=== PATIENT | male | born 1995 | race Caucasian/White ===

== ENCOUNTER 2017-02-11 17:06 | Inpatient (IN) | payer OTHER ==
--- NOTE | 2017-02-11 17:59 | EDPHY ---
H & P Time Seen by Provider: 02/11/17 17:24 HPI/ROS: HPI Bipolar. 22-year-old male by private vehicle with his mother. This patient has a history of bipolar disorder. He has been on Zoloft and Zyprexa as well as lithium. He stopped taking Zoloft and Zyprexa weeks ago. He is currently managed by local psychiatrist Dr. Prado. Mother reports that over the last couple of weeks he has become progressively more manic. He is still taking lithium 600 mg twice daily. He is not suicidal. He admits to alcohol and chewing tobacco today. ROS: Constitutional: No fever, no chills. No weakness. Eyes: No discharge. No changes in vision. ENT: No sore throat. No nasal congestion or rhinorrhea. Respiratory: No cough. No shortness of breath. Cardiac: No chest pain, no palpitations. Gastrointestinal: No abdominal pain, no vomiting, no diarrhea. Genitourinary: No hematuria. No dysuria or increased frequency with urination. Musculoskeletal: No back pain. No neck pain. No myalgias or arthralgias. Skin: No rashes. Neurological: No headache. No focal weakness or altered sensation. Past medical history: ADD, bipolar. Social history: Chews tobacco, drinks alcohol socially. Here with his mother. Physical Exam: General Appearance: Alert, no distress. This patient is responding to questions appropriately and in full sentences. This patient appears well- hydrated and well-nourished. Eyes: Pupils equal and round no pallor or injection. No lid edema, erythema or injection. Respiratory: There are no retractions, lungs are clear to auscultation with good air movement bilaterally. Cardiovascular: Regular rate and rhythm. No murmur. Gastrointestinal: Abdomen is soft and nontender, no masses, bowel sounds normal. No focal tenderness at McBurney's point. No Roberson sign. Neurological: Motor sensory function is grossly intact. Cranial nerves are normal. Gait is normal. Skin: Warm and dry, no rashes. Musculoskeletal: Neck is supple and nontender. Extremities are symmetrical. All joints range without pain or impingement. Psychiatric: No agitation. No depression. Database: EKG: Imaging: Procedures: Emergency department course: IV placed. Appropriate blood work obtained. He will be given Zyprexa 10 mg as needed for agitation. Behavioral Health notified. He is not currently on detainer. He is cooperative. 9:45 p.m., patient seen and evaluated by [facility]. He has been accepted for admission to [address] [place] [address]. I have filled out the appropriate transfer paperwork. His remaining emergency department course under my care has been uneventful. He was transferred in stable and improved condition to [address] [place] [address]. Differential Diagnosis: The differential diagnosis on this patient includes but is not limited to bipolar with acute naif. Suicidal ideation, severe depression, acute psychosis unlikely. This represents a partial list of diagnoses considered. These considerations are based on history, physical exam, past history, reassessment and diagnostic testing. Smoking Status: Current some day smoker Constitutional: Initial Vital Signs Temperature (C) 37.1 C 02/11/17 17:10 Heart Rate 107 H 02/11/17 17:10 Respiratory Rate 18 02/11/17 17:10 Blood Pressure 171/102 H 02/11/17 17:10 O2 Sat (%) 95 02/11/17 17:10 O2 Delivery Mode Room Air Allergies/Adverse Reactions: nitroglycerin [From Nitro-Bid] Allergy (Verified 02/11/17 17:09) Home Medications: Medication Instructions Recorded [facility] Carbonate ER [Eskalith Cr 900 mg PO HS #60 tab 07/21/15 450 mg (*)] OLANZapine [Zyprexa] 20 mg PO HS #30 tablet 07/21/15 Medical Decision Making - Data Points Laboratory Results: Laboratory Results 02/11/17 17:45 02/11/17 17:45 02/11/17 02/11/17 02/11/17 18:01 17:45 17:45 WBC 9.94 10^3/uL H 10^3/uL (3.80-9.50) RBC 5.08 10^6/uL 10^6/uL (4.40-6.38) Hgb 15.1 g/dL g/dL (13.7-17.5) Hct 46.3 % % (40.0-51.0) MCV 91.1 fL fL (81.5-99.8) MCH 29.7 pg pg (27.9-34.1) MCHC 32.6 g/dL g/dL (32.4-36.7) RDW 13.4 % % (11.5-15.2) Plt Count 231 10^3/uL 10^3/uL (150-400) MPV 11.2 fL fL (8.7-11.7) Neut % (Auto) 74.4 % H % (39.3-74.2) Lymph % (Auto) 17.3 % % (15.0-45.0) Haines % (Auto) 6.0 % % (4.5-13.0) Eos % (Auto) 1.3 % % (0.6-7.6) Baso % (Auto) 0.6 % % (0.3-1.7) Nucleat RBC Rel Count 0.0 % % (0.0-0.2) Absolute Neuts (auto) 7.39 10^3/uL H 10^3/uL (1.70-6.50) Absolute Lymphs (auto) 1.72 10^3/uL 10^3/uL (1.00-3.00) Absolute Monos (auto) 0.60 10^3/uL 10^3/uL (0.30-0.80) Absolute Eos (auto) 0.13 10^3/uL 10^3/uL (0.03-0.40) Absolute Basos (auto) 0.06 10^3/uL 10^3/uL (0.02-0.10) Absolute Nucleated RBC 0.00 10^3/uL 10^3/uL (0-0.01) Immature Gran % 0.4 % % (0.0-1.1) Immature Gran # 0.04 10^3/uL 10^3/uL (0.00-0.10) Sodium 142 mEq/L mEq/L (134-144) Potassium 3.9 mEq/L mEq/L (3.5-5.2) Chloride 103 mEq/L mEq/L (97-110) Carbon Dioxide 23 mEq/l mEq/l (22-31) Anion Gap 16 mEq/L mEq/L (8-16) BUN 4 mg/dL L mg/dL (7-23) Creatinine 0.9 mg/dL mg/dL (0.7-1.3) Estimated GFR > 60 Glucose 92 mg/dL mg/dL (70-100) Calcium 10.3 mg/dL mg/dL (8.5-10.4) Urine Opiates Screen NEGATIVE (NEGATIVE) Urine Barbiturates NEGATIVE (NEGATIVE) Ur Phencyclidine Scrn NEGATIVE (NEGATIVE) Ur Amphetamine Screen NEGATIVE (NEGATIVE) U Benzodiazepines Scrn NEGATIVE (NEGATIVE) [facility] 0.4 mEq/L L mEq/L (0.6-1.2) Urine Cocaine Screen NEGATIVE (NEGATIVE) U Marijuana (THC) Screen NEGATIVE (NEGATIVE) Ethyl Alcohol 26 mg/dL H mg/dL (0-10) Departure - Departure Disposition: [facility] IP Clinical Impression: Bipolar 1 disorder, manic, moderate Referrals: NONE *PRIMARY CARE P,. [Primary Care Provider] - As per Instructions
[2017-02-11 18:01] LABS: % IMMATURE GRANULYOCYTES 0.4 % (0.0-1.1); ABSOLUTE IMMATURE GRANULOCYTES 0.04 10^3/uL (0.00-0.10); ADD DIFF? NO; ADD MORPH? NO; ADD SCAN? NO; ATYPICAL LYMPHOCYTE FLAG 30 (0-99); FRAGMENT RBC FLAG 0 (0-99); HEMATOCRIT 46.3 % (40.0-51.0); HEMOGLOBIN 15.1 g/dL (13.7-17.5); LEFT SHIFT FLG 0 (0-99); LIPEMIA HEMOLYSIS FLAG 80 (0-99); MEAN CELL HEMOGLOBIN 29.7 pg (27.9-34.1); MEAN CELL HEMOGLOBIN CONCENTR. 32.6 g/dL (32.4-36.7); MEAN CELL VOLUME 91.1 fL (81.5-99.8); MEAN PLATELET VOLUME 11.2 fL (8.7-11.7); PLATELET CLUMPS FLAG 0 (0-99); PLATELET COUNT 231 10^3/uL (150-400); RED BLOOD CELL COUNT 5.08 10^6/uL (4.40-6.38); RED CELL DISTRIBUTION WIDTH 13.4 % (11.5-15.2)
[2017-02-11 18:17] LABS: ANION GAP 16 mEq/L (8-16); CALCIUM 10.3 mg/dL (8.5-10.4); CARBON DIOXIDE 23 mEq/l (22-31); CHLORIDE 103 mEq/L (97-110); CREATININE 0.9 mg/dL (0.7-1.3); ETHANOL SERUM 26 mg/dL (0-10); GLOMERULAR FILTRATION RATE > 60; GLUCOSE 92 mg/dL (70-100); LITHIUM 0.4 mEq/L (0.6-1.2); POTASSIUM 3.9 mEq/L (3.5-5.2); SODIUM 142 mEq/L (134-144)
[2017-02-11] MEDS ORDERED: MAGNESIUM HYDROXIDE 30 ML UDCUP PO PRN (21:00)
[2017-02-11] MEDS ORDERED: MAG HYDROX/AL HYDROX/SIMETH 30 ML UDCUP PO PRN (21:00)
[2017-02-11] MEDS ORDERED: NICOTINE POLACRILEX 2 MG GUM B PRN (21:00)
[2017-02-11] MEDS ORDERED: ACETAMINOPHEN 325 MG TAB PO PRN (21:00)
[2017-02-11] MEDS ORDERED: MELATONIN 3 MG TAB PO PRN (21:00)
[2017-02-11] MEDS ORDERED: LORazepam 1 MG TAB PO PRN (21:00)
[2017-02-11] MEDS ORDERED: OLANZapine DISINTEGR 5 MG TAB PO PRN (21:00)
[2017-02-11] MEDS: OLANZapine DISINTEGR 10 MG TAB PO SCH (23:27)
[2017-02-11] MEDS: LITHIUM CARBONATE 300 MG CAP PO SCH (23:27)
[2017-02-12] MEDS: LITHIUM CARBONATE 300 MG CAP PO SCH ×2 (08:53→19:02)
--- NOTE | 2017-02-12 17:07 | BAPA ---
[f rep st] ADMISSION PSYCHIATRIC ASSESSMENT DATE OF SERVICE: 02/12/2017 REASON FOR ADMISSION: The patient is a 22-year-old male with a history bipolar disorder, w james is well known to me from previous admissions both here and at [facility]. He was l ast with us in July 2015 and apparently has been generally stable since then. I interviewed him lizbethrenny cote in his room, and he is quite sleepy and was unable to state if he had been in the hospital since t hat last hospitalization here or not. He apparently was brought to the hospital by his mother due to concerns for escalating naif. Apparently, he had been experiencing decreasing sleep and had been u p riding his bike or walking the streets all night in the cold without a jacket. He had been going t o the all-night gym at 2 in the morning. He states that he was hearing voices, but says it was all p art of some form of electrical spectrum. His mother states that he was also drinking alcohol on a re gular basis recently, even though he had quit for the last year and a half. The patient can give lit tle additional information, stating that he feels like he has been doing fine, and that he is only he re "to make my mom happy." He states he has been inconsistent with his medications, but is unsure ex actly how much he has been taking or not taking. PAST PSYCHIATRIC HISTORY: Significant for 5 previous psychiatric hospitalizations. The last was tawana arently here in July of 2015. He sees Dr. Shawn Prado as an outpatient. ALLERGIES: No known medical allergies, though listed to nitroglycerin for some reason. CURRENT MEDICATIONS: Zyprexa; patient states he is taking 10 mg as needed for sleep, lithium carbona te 600 mg b.i.d., and Zoloft dose unknown. PAST MEDICAL HISTORY: Ulcerative colitis and eczema. When I looked in the patient's record, there a re pathology reports for his tonsils dated January of 2017. The patient is unable to give me informa tion about this. He may have had a tonsillectomy at that time. SOCIAL HISTORY: The patient lives with his mother. He previously lived with his father until his fa ther last year from pancreatic cancer. 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 The patient denies any current legal problems. The patient is a high school graduate. SUBSTANCE ABUSE HISTORY: The patient states he is drinking alcohol occasionally, though reports jem ng been abstinent for over a year until recently. He denies any other drug use currently. FAMILY HISTORY: Noncontributory. ADMISSION LABORATORY: CBC shows a white count slightly up at 9.94, with neutrophil percentage up at 74.4%. Serum chemistries are normal, with the exception of BUN low at 4. Urine drug screen is negat danisha for all substances. Alcohol was 26 and lithium was 0.4. MENTAL STATUS EXAMINATION: Reveals a marginally groomed, healthy-appearing male. He is sl eeping when I enter the room, and he is able to sit up and talk to me, but appears quite sedated. He makes intermittent eye contact and demonstrates a blunted, though stable affect. His mood is descri bed as "fine." His thought process is linear for the purposes of our conversation, though he does of ten state that he does not know the answer to a question or cannot remember. His thought content rev eals no evidence of auditory hallucinations or delusions as mentioned in the [facility] report at this time. The patient is alert and oriented to person, place, time, and situation. His sensorium is clear. He denies any thoughts of suicide, homicide or violence. His insight and judgment appear to be fair. IMPRESSION: 1. Bipolar 1 disorder, most recent episode manic, severe with psychosis. 2. Possible alcohol use disorder, severity unknown. 3. Chronic illness, recurrent illness. PLAN: The patient is a 22-year-old male, well known to me from previous psychiatric admiss ions. It was 5 years ago when he was first diagnosed with bipolar naif. He has a long and difficul t history of severe decompensations in the psychotic naif in the context of medication noncompliance and substance use. This typically takes the form of acceleration of grandiose delusions and him chey ving home abruptly and living on the streets. He is apparently now living with his mother. It sound s like it was a stable environment until recently when he may have become noncompliant with his medic natanael. He is agreeable to restarting his medications at this time, and we will restart the lithium an d Zyprexa at previous doses. ESTIMATED LENGTH OF STAY: 5-7 days. /[id number]/MODL
--- NOTE | 2017-02-12 17:47 | BCON ---
[f rep st] BEHAVIORAL HEALTH CONSULTATION INTERNAL MEDICINE CONSULTATION DATE OF CONSULTATION: 02/12/2017 REFERRING PHYSICIAN: Lamin Antonio MD REASON FOR REFERRAL: Medical clearance for inpatient behavioral health stay. HISTORY OF PRESENT ILLNESS: This patient came to the [facility] Emergency Department, brought in by his mother. He has a history of bipolar disorder and mother had noted that over the last few weeks, he had become progressively more manic. He had continued to take his lithium; however, he had stopped taking olanzapine and sertraline. He was evaluated by the mental health team and admitted for further psychiatric care. Currently, he is without any acute complaints. PAST MEDICAL HISTORY: 1. Bipolar disorder. 2. Irritable bowel syndrome. PAST SURGICAL HISTORY: He had a tonsillectomy approximately 2 months ago. MEDICATIONS: Prior to admission: 1. Eluxadoline 100 mg p.o. twice daily. 2. Olanzapine 2.5 mg p.o. at bedtime p.r.n. 3. [place] 600 mg p.o. twice daily. SOCIAL HISTORY: He lives with his mother. He has worked as a ren. He is a smoker. FAMILY HISTORY: Noncontributory. REVIEW OF SYSTEMS: He reports that his irritable bowel syndrome, diarrhea symptoms are in remission and he has not been taking the eluxadoline recently. He says the medication is at home with his mother, and it is very expensive, so he did not bring it. He has a good appetite. He denies cough or dyspnea. He is not in pain. He denies nausea, vomiting, constipation, or diarrhea. Otherwise, a 10-point review of systems is negative. PHYSICAL EXAM: VITAL SIGNS: Blood pressure is 118/80, heart rate is 94, respiratory rate is 14, oxygen saturation is 95% on room air. Temperature is 36.4 degrees centigrade. His weight is 81.6 kg for a body mass index of 25.1. When he first got to the emergency department, his blood pressure was 171/102 and his heart rate was 107. GENERAL: This is a well-nourished, well-developed man, appears chronologic age. Cooperative and in no acute distress. HEENT: Extraocular movements are intact. Pupils are equal, round, reactive to light. Mucous membranes are moist. Dentition is in good condition. There are no oropharyngeal mucosal lesions, and no posterior oropharyngeal mucus. NECK: Supple. HEART: There is a regular rate and rhythm with no murmurs, rubs, or gallops. LUNGS: Clear to auscultation bilaterally. ABDOMEN: Benign. EXTREMITIES: There is no cyanosis, clubbing, or edema. NEUROLOGIC: He is alert and oriented x3. Cranial nerves 2-12 are grossly intact. There is no focal weakness. Sensation is intact to light touch. LABORATORY STUDIES: Drawn in the emergency department, CBC showed a mildly elevated white blood cell count at 9.94 with no left shift. Serum chemistry revealed overall normal renal function and electrolytes. His BUN was low at 4. Toxicology screen in the serum showed a subtherapeutic lithium level at 0.4, and his ethyl alcohol level was elevated at 26 mg/dL. Toxicology screen in the urine was negative for any substances of abuse. ASSESSMENT/RECOMMENDATIONS: 1. Mental health issues, pending further evaluation and management per Psychiatry and the mental health team. 2. Irritable bowel syndrome. Observe for development of diarrhea. If this happens, would be reasonable to request that the eluxadoline be brought in so that he can resume taking medication which has been effective for him. 3. Elevated blood pressure and leukocytosis. These are likely due to hyperandrogenic state, having to do with circumstances of his admission. There is no indication to repeat the CBC. I see no medical contraindications to this patient's continued stay on the inpatient behavioral health unit or to any psychiatric medications or procedures. Thank you very much for including me in the care of this patient. Please do not hesitate to contact me or the Hospitalist service should there be need for further medical evaluation. /[id number]/MODL MTDD
[2017-02-12] MEDS: OLANZapine DISINTEGR 10 MG TAB PO SCH (19:02)
[2017-02-12] MEDS: Eluxadoline [Viberzi] 100 MG PO SCH (19:31)
[2017-02-13] MEDS ORDERED: FLU VACC QS 2017-18 (3YR+)/PF 0.5 ML SYR (FLUARIX QUAD) IM ONE (08:12)
[2017-02-13] MEDS ORDERED: PNEUMOCOCCAL 0.5ML VACCINE VIAL IM ONE (08:13)
[2017-02-13] MEDS: LITHIUM CARBONATE 300 MG CAP PO SCH ×2 (08:14→20:26)
[2017-02-13] MEDS: Eluxadoline [Viberzi] 100 MG PO SCH ×2 (11:06→20:25)
--- NOTE | 2017-02-13 16:17 | SOAPPROG ---
SOAP Progress Note Assessment/Plan: Assessment: Plan: 02/13/17 16:16 Bipolar D/o: Meds have been restarted. He is doing reasonable well despite complete lack of insight. CCM. Subjective: Pt seen, discussed with staff. Reports feeling "just great." He states again that he has no acute psychiatric problems, and is only here to appease his mother. He has been cooperative with all meds. Slept well last night. Calmer than during his usual manic presentations. Objective: Vital Signs Temp Pulse Resp BP Pulse Ox 36.3 C 81 20 108/71 94 02/13/17 06:00 02/13/17 06:00 02/13/17 06:00 02/13/17 06:00 02/13/17 06:00 - Time Spent With Patient Time Spent With Patient: 15" ICD10 Worksheet Patient Problems: Problems Problem Status Onset Bipolar 1 disorder, manic, moderate Acute Bipolar disorder Acute Suicidal ideation Acute
[2017-02-13] MEDS: OLANZapine DISINTEGR 10 MG TAB PO SCH (20:26)
[2017-02-14] MEDS: Eluxadoline [Viberzi] 100 MG PO SCH ×2 (08:59→21:28)
[2017-02-14] MEDS: LITHIUM CARBONATE 300 MG CAP PO SCH ×2 (08:59→20:58)
--- NOTE | 2017-02-14 13:25 | SOAPPROG ---
SOAP Progress Note Assessment/Plan: Assessment: Per Dr. Gurrola's note: Plan: 02/13/17 16:16 Bipolar D/o: Meds have been restarted. He is doing reasonable well despite complete lack of insight. [facility]. Plan: 02/14/17 13:21 1. CCM - patient doing well. 2. Sign in voluntary - patient agrees to stay through weekend and discharge once follow up plan has been finalized. Subjective: Met with patient, reviewed chart and d/w staff. Patient says he is feeling "pretty well." He says his admission was "all a misunderstanding with my mom." He says "she thought I was getting manic." He agrees he was sleeping less at home and his mood was "more elevated." Now he feels "calmer" and has been sleeping 8-9 hrs each night. He says it's because the "zyprexa knocks me out." Patient still has odd beliefs including stating, "I feel that I'm re-awakening as a person, I'm coming out spiritually." He denies any SI/HI, no AH/VH. Objective: Vital Signs Temp Pulse Resp BP Pulse Ox 36.8 C 82 17 137/71 H 96 02/14/17 06:00 02/14/17 06:00 02/14/17 06:00 02/14/17 06:00 02/14/17 06:00 MSE: Social, friendly. Affect: Euthymic Mood: "Pretty well" TP: Linear, illocial and tangential when talking about his spirituality TC: Denies any SI/ HI, no AH/VH Insight/Judgment: Poor - Time Spent With Patient Time Spent With Patient: 20" - Pending Discharge Pending Discharge Within 24 Hours: No Pending Discharge Within 48 Hours: No ICD10 Worksheet Patient Problems: Problems Problem Status Onset Bipolar 1 disorder, manic, moderate Acute Bipolar disorder Acute Suicidal ideation Acute
[2017-02-14] MEDS: OLANZapine DISINTEGR 10 MG TAB PO SCH (20:58)
[2017-02-15] MEDS: LITHIUM CARBONATE 300 MG CAP PO SCH ×2 (09:32→19:33)
[2017-02-15] MEDS: Eluxadoline [Viberzi] 100 MG PO SCH ×2 (09:34→19:34)
--- NOTE | 2017-02-15 12:48 | SOAPPROG ---
SOAP Progress Note Assessment/Plan: Assessment: Per Dr. Gurrola's note: Plan: 02/13/17 16:16 Bipolar D/o: Meds have been restarted. He is doing reasonable well despite complete lack of insight. [facility]. Plan: 02/14/17 13:21 1. CCM - patient doing well. 2. Sign in voluntary - patient agrees to stay through weekend and discharge once follow up plan has been finalized. 02/15/17 12:45 1. CCM - patient continues to show improvement 2. Now voluntary Subjective: Met with patient, d/w staff. Patient reports that he continues to sleep "really good and deep." He says that he'd probably be able to sleep "that way even without the Zyprexa" but admits the medication is "helping." He says he will continue to take it at home after he discharges. Patient says he feels he is getting "better everyday" and says his MOC notices the improvement when she comes to visit. Objective: Vital Signs Temp Pulse Resp BP Pulse Ox 36.6 C 98 18 113/65 98 02/15/17 06:00 02/15/17 06:00 02/15/17 06:00 02/15/17 06:00 02/15/17 06:00 MSE: Social, friendly, cooperative. Affect: Euthymic Mood: "Really good" TP : Linear TC: Denies any SI/HI, no AH/VH, still thinks he is spiritually awakening Insight/Judgment: Poor - Time Spent With Patient Time Spent With Patient: 20" - Pending Discharge Pending Discharge Within 24 Hours: No Pending Discharge Within 48 Hours: No ICD10 Worksheet Patient Problems: Problems Problem Status Onset Bipolar 1 disorder, manic, moderate Acute Bipolar disorder Acute Suicidal ideation Acute
[2017-02-15] MEDS: OLANZapine DISINTEGR 10 MG TAB PO SCH (19:34)
[2017-02-16] MEDS: LITHIUM CARBONATE 300 MG CAP PO SCH ×2 (08:33→20:30)
[2017-02-16] MEDS: Eluxadoline [Viberzi] 100 MG PO SCH ×2 (08:39→20:46)
--- NOTE | 2017-02-16 16:01 | SOAPPROG ---
SOAP Progress Note Assessment/Plan: Assessment: Plan: 02/13/17 16:16 Bipolar D/o: Meds have been restarted. He is doing reasonable well despite complete lack of insight. CCM. 02/16/17 16:02 Bipolar D/o: Stabilizing. Will discuss the possibility of VPA with patient. Family meeting scheduled for tomorrow at 1130. Subjective: Pt seen, discussed with staff, chart reviewed. Reports feeling "just fine." Discussed his treatment and he demonstrates better insight into his illness. He states, "I guess I need to know when to slow down sooner." He is agreeable to having a family meeting tomorrow with his mother. Eating and sleeping well. Compliant with all meds. Case is reviewed with pt's outpt psychiatrist, Dr. Prado who recommends a trial of VPA to ultimately replace the Zyprexa. Objective: Vital Signs Temp Pulse Resp BP Pulse Ox 36.5 C 78 20 119/75 98 02/16/17 06:39 02/16/17 06:39 02/16/17 06:39 02/16/17 06:39 02/15/17 06:00 MSE: Calm, coop. Affect is blunted, somewhat odd. Mood is "just dandy." TP is generally linear though circumstantial at times. TC reveals some ongoing grandiosity. Denies SI/HI/. - Time Spent With Patient Time Spent With Patient: 15" ICD10 Worksheet Patient Problems: Problems Problem Status Onset Bipolar 1 disorder, manic, moderate Acute Bipolar disorder Acute Suicidal ideation Acute
[2017-02-16] MEDS: OLANZapine DISINTEGR 10 MG TAB PO SCH (20:29)
[2017-02-17] MEDS: LITHIUM CARBONATE 300 MG CAP PO SCH ×2 (08:54→21:13)
[2017-02-17] MEDS: Eluxadoline [Viberzi] 100 MG PO SCH ×2 (08:55→20:39)
--- NOTE | 2017-02-17 17:54 | SOAPPROG ---
SOAP Progress Note Assessment/Plan: Assessment: Plan: 02/13/17 16:16 Bipolar D/o: Meds have been restarted. He is doing reasonable well despite complete lack of insight. [facility]. 02/16/17 16:02 Bipolar D/o: Stabilizing. Will discuss the possibility of VPA with patient. Family meeting scheduled for tomorrow at 1130. 02/17/17 17:56 Bipolar D/o: Continued improvement. Will start Lamictal 25mg, monitor. Subjective: Pt seen, discussed with staff. Family meeting held with mother and CC. We reviewed the course of his treatment and the treatment and d/c plans. He continues to demonstrate poor insight into his illness though is agreeable to treatments. We discussed meds at length. Pt's mother forwarded his genetic testing to me and the recommendations from Dr. Shearer, the psychiatrist who ordered them. It shows likely response to Lamictal. Pt agreeable to trial. Mom on Lamictal with good effect. Objective: Vital Signs Temp Pulse Resp BP Pulse Ox 36.8 C 87 14 115/73 94 02/17/17 06:00 02/17/17 06:00 02/17/17 06:00 02/17/17 06:00 02/17/17 06:00 MSE: Calm, coop. Affect is slightly inapprop., smiling oddly and speaking in silly voices at times. He is also dramatic at times. Mood is "just fine." TP linear at times, though gets off track easily. TC reveals some continued grandiosity, though no robby delusions. - Time Spent With Patient Time Spent With Patient: 45" ICD10 Worksheet Patient Problems: Problems Problem Status Onset Bipolar 1 disorder, manic, moderate Acute Bipolar disorder Acute Suicidal ideation Acute
[2017-02-17] MEDS: OLANZapine DISINTEGR 10 MG TAB PO SCH (21:13)
[2017-02-17] MEDS: lamoTRIgine 25 MG TAB PO SCH (21:13)
[2017-02-18] MEDS: LITHIUM CARBONATE 300 MG CAP PO SCH ×2 (09:04→20:44)
[2017-02-18] MEDS: Eluxadoline [Viberzi] 100 MG PO SCH ×2 (09:05→20:49)
--- NOTE | 2017-02-18 14:45 | SOAPPROG ---
SOAP Progress Note Assessment/Plan: Assessment: Plan: 02/14/17 13:21 1. CCM - patient doing well. 2. Sign in voluntary - patient agrees to stay through weekend and discharge once follow up plan has been finalized. 02/15/17 12:45 1. CCM - patient continues to show improvement 2. Now voluntary 02/18/17 14:42 1. Continue on Lamictal. Patient had first dose last night without any SE's. 2. Patient continues to show improvement. Sleeping well, no sxs of naif at this time. Subjective: Met with patient, reviewed chart and d/w staff. Patient is social, friendly, calm and polite. He denies any complaints since starting Lamictal last HS. He says he feels "great" and thinks meds are "really helpful." He denies any SI/HI , no AH/VH. Objective: Vital Signs Temp Pulse Resp BP Pulse Ox 36.8 C 61 16 106/55 L 97 02/18/17 06:00 02/18/17 06:00 02/18/17 06:00 02/18/17 06:00 02/18/17 06:00 MSE: Pleasant, social, cooperative. Affect: Bright, euthymic Mood: "Great" TP : Linear, goal-directed TC: Denies any SI/HI, no AH/VH, no psychosis Insight/ Judgment: Fair - Time Spent With Patient Time Spent With Patient: 20" - Pending Discharge Pending Discharge Within 24 Hours: No Pending Discharge Within 48 Hours: Yes Pending Discharge Date: 02/20/17 (Will likely d/c on Thursday with f/u appts) Pending Discharge Time: 11:00 ICD10 Worksheet Patient Problems: Problems Problem Status Onset Bipolar 1 disorder, manic, moderate Acute Bipolar disorder Acute Suicidal ideation Acute
[2017-02-18] MEDS: OLANZapine DISINTEGR 10 MG TAB PO SCH ×2 (20:43→20:48)
[2017-02-18] MEDS: lamoTRIgine 25 MG TAB PO SCH ×2 (20:43→20:47)
[2017-02-19 06:59] VITALS: PULSE 90
[2017-02-19] MEDS: LITHIUM CARBONATE 300 MG CAP PO SCH ×2 (08:37→17:40)
[2017-02-19] MEDS: Eluxadoline [Viberzi] 100 MG PO SCH ×2 (08:47→17:49)
--- NOTE | 2017-02-19 14:48 | SOAPPROG ---
SOAP Progress Note Assessment/Plan: Assessment: Plan: 02/14/17 13:21 1. CCM - patient doing well. 2. Sign in voluntary - patient agrees to stay through weekend and discharge once follow up plan has been finalized. 02/15/17 12:45 1. CCM - patient continues to show improvement 2. Now voluntary 02/18/17 14:42 1. Continue on Lamictal. Patient had first dose last night without any SE's. 2. Patient continues to show improvement. Sleeping well, no sxs of naif at this time. 02/19/17 14:45 1. Patient agrees to continue on Lamictal, has tolerated it well while in hospital. 2. Likely to d/c tomorrow. MOC agrees patient is much improved since admission. Subjective: Met with patient, d/w staff. Patient is in his room with his MOC and his therapist. They are practicing some meditation exercises. Patient told MD that he is ready to discharge as soon as possible. MD recommended another day to observe patient on his new medication, Lamictal, which he started 2 nights ago. Patient agrees to stay and discharge tomorrow. He denies any SE's or complaints on new med. He denies any SI/HI, no sxs of psychosis or naif. Objective: Vital Signs Temp Pulse Resp BP Pulse Ox 36.6 C 90 20 136/79 H 100 02/19/17 06:00 02/19/17 06:00 02/19/17 06:00 02/19/17 06:00 02/19/17 06:00 MSE: Pleasant, social, cooperative. Affect: Bright, cheerful Mood: "Good" TP: Linear, goal-directed TC: Denies any SI/HI, no AH/VH Insight/Judgment: Fair - Time Spent With Patient Time Spent With Patient: 15" - Pending Discharge Pending Discharge Within 24 Hours: Yes Pending Discharge Date: 02/20/17 (Will likely d/c tomorrow ) Pending Discharge Time: 11:00 ICD10 Worksheet Patient Problems: Problems Problem Status Onset Bipolar 1 disorder, manic, moderate Acute Bipolar disorder Acute Suicidal ideation Acute
[2017-02-19] MEDS: OLANZapine DISINTEGR 10 MG TAB PO SCH (17:41)
[2017-02-19] MEDS: lamoTRIgine 25 MG TAB PO SCH (17:41)
[2017-02-20 06:35] VITALS: BP 121/84; RESP 16; TEMP 97.5; O2SAT 97
[2017-02-20] MEDS: LITHIUM CARBONATE 300 MG CAP PO SCH (09:24)
[2017-02-20] MEDS: Eluxadoline [Viberzi] 100 MG PO SCH (09:31)
--- NOTE | 2017-02-20 20:54 | BDS ---
[f rep st] BEHAVIORAL HEALTH DISCHARGE SUMMARY REASON FOR ADMISSION: Patient is a 22-year-old man with a history of bipolar disorder, was last seen in July of [address] [place] [address] Inpatient Unit and has been stable since that time. He was brought to the hospital by his mother due to concerns for escalating naif. Apparently dontrell ent has been experiencing decreased sleep and had been up riding his bike or walking the streets all night in the cold without a jacket. He had been going to an all-night gym at 2 in the morning. He s tates that he was hearing voices but says it was all part of some form of the "electrical spectrum". Mother states he was also drinking alcohol on a regular basis recently even though he had quit for ab out the last year and a half. Patient told the admitting psychiatrist, Dr. Gurrola, that he feels li ke he has been doing "fine", and he is only here to "make my mom happy". He states that he has been i nconsistent in taking his medications. He is not exactly sure what he has been taking or not taking. ADMITTING DIAGNOSES: 1. Bipolar 1 disorder, most recent episode, manic, severe with psychosis. 2. Possible alcohol use disorder. 3. Chronic illness, recurrent illness. ADMISSION PHYSICAL EXAMINATION: Was performed by Dr. Choudhary. Please see his H and P for details. ADMISSION LAB: CBC showed a white cell count slightly up at 9.94, neutrophil percentage was 74.4%. S jeanette chemistries are normal with the exception of BUN low at 4. Urine drug screen was negative for a ll substances. A blood alcohol level was 26, and lithium level was 0.4. HOSPITAL COURSE: Patient was admitted to the hospital and continued on his outpatient dose of lithiu m which he admits to being inconsistent taking. He was resumed on 600 mg p.o. twice daily, which was his outpatient dose. He was also restarted back on his Zyprexa which he had not been taking for at least several weeks, possibly longer, although he acknowledges ever since his discharge from [address] [place] [address] in July of 2015, he had not been taking any of his medications consistently. 10 mg p.o. at bedtime was the dose that he had taken in the past when he was stable in the hospital so he was titrated up t o that dose. Patient was social, friendly, personable, cooperative. He showed no signs or symptoms of naif. He did not have pressured speech or racing thoughts. He did not have grandiose delusions. There were s ome questions about psychosis. On admission he had endorsed having auditory hallucinations that he said were related to "the electri jonh spectrum" but he denied any auditory or visual hallucinations during that time that he was in the hospital. He did make several references to apparent amish or spiritual fixations. He told the psychiatrist that was covering on the weekend, Dr. Antonio, that he was "having a spiritual re-awakenin g in his body" and he has made other references to "gods and demons" but he denies seeing anything th at was not real or that other people did not agree that they also saw. He denied experiencing any aud itory hallucinations. Had no command hallucinations. Denied any thoughts, plans or intents to harm himself or anyone else. On 02/17, patient was seen by Dr. Gurrola. A family meeting was held with the mother and the care co ordinator along with the patient. Dr. Gurrola noted "He (patient) continued to demonstrate poor insig ht to his illness though is agreeable to continue with treatment. We discussed the meds at length. The patient's mother forwarded his genetic testing to me and the recommendations from Dr. Shearer t he psychiatrist who ordered them. It shows likely response to Lamictal. Patient agreeable to a trial of Lamictal. Mom already on Lamictal and she reports that it has good effect for her". So, on 02/17, patient was started on 25 mg p.o. at bedtime of Lamictal. He denied any side effects, continued to tolerate the medications up until the time of discharge. At time of discharge, patient reported feeling "really good". He showed no signs or symptoms of naif. He denied any symptoms of psychosis. There were no observable symptoms of psychosis or naif present. He denied any thoughts, plans or intents to hurt himself or anyone else. He denied feeling depressed or anxious. He report ed his mood as "great". He said that he was very much looking forward to going home especially with Thanksgiving coming up. He said "I am going to do what my mother wants". Says that he is not going t o "get into any trouble". Patient said he will continue taking his medications that have been provid ed for him here. He will follow up with his outpatient provider, Dr. Prado, and he understands that the Lamictal dose will need to be titrated over the course of the next several weeks to a more therap eutic dose. Patient also understands the mood altering affects of drugs and alcohol. This MD charlie meyer as his primary attending MD during this hospitalization, Dr. Gurrola, both emphasized the risks, si de affects, drug interactions and potential negative consequences of drinking alcohol which can impai r cognition, impair judgment, impair psychomotor coordination as well as have mood altering affects a nd is strongly contraindicated in patients who have significant mood disorder. Patient said that he understood this. CONDITION ON DISCHARGE: Stable. Patient is euthymic. His affect is appropriate. He denies any delu sions, paranoia, no auditory or visual hallucinations. No signs or symptoms of naif or psychosis. Present he is otherwise stable and appropriate for discharge. DISCHARGE MEDICATIONS: Include Zyprexa 10 mg p.o. at bedtime. Patient states that he has plenty of Z yprexa at home although they are 5 mg tabs. He understands he needs to start taking 2 tablets each e vening. [place] 600 mg p.o. b.i.d. He says he has plenty of lithium tablets at home and will continu e on this dose. Patient is also prescribed Lamictal 25 mg p.o. at bedtime. He will get a prescripti on for this at time of discharge since this is a new medication for him. He understands that he will need to see Dr. Prado to have the medication titrated over the next several weeks to a more therapeu tic dose. Patient has also been taking melatonin 3-6 mg p.o. at bedtime p.r.n. for sleep. He was gi kelly a 30-day supply of this medication with no refills. DISCHARGE DIAGNOSES: 1. Bipolar 1 most recent episode manic with psychotic features. 2. Alcohol use disorder, severe. 3. Psychosocial stressors include chronic mental illness and lack of compliance with medications. DISPOSITION: Patient left the hospital with his mom. He lives with her and will return to staying a t her house. FOLLOW UP: Patient has a followup appointment with his outpatient prescriber, Dr. Romario Prado, on 04/26/2016 in the afternoon. LEGAL COURSE: The patient was converted to voluntary status with the expiration of his M1 hold and h e was voluntary at time of discharge. /[id number]/MODL
== END 2017-02-20 12:52 | disposition home or self-care (01) | DRG 885 ==
LOC: BBEH 22:35
PROVIDERS: ADMIT Psychiatry & Neurology Psychiatry; ATTEND Psychiatry & Neurology Psychiatry
DX: F31.2 Bipolar disorder, current episode manic severe with psychotic features (principal); K58.9 Irritable bowel syndrome, unspecified; Z91.128 Patient's intentional underdosing of medication regimen for other reason
CPT/HCPCS: 80305; G0008; G0009; G0480

== ENCOUNTER 2017-03-07 18:51 | Emergency (ER) | payer OTHER ==
--- NOTE | 2017-03-07 19:01 | EDPHY ---
H & P Smoking Status: Current some day smoker Time Seen by Provider: 03/07/17 18:54 HPI/ROS: CHIEF COMPLAINT: Increasing naif HISTORY OF PRESENT ILLNESS: Per the patient's mother and Dr. Rosales who is a friend of the family the patient has a history of bipolar disorder and was discharged from inpatient psychiatry just before . Since then he has been not 100% compliant with medications which include Zyprexa and Depakote and has been manifesting increasingly manic behavior including reckless motorcycle riding, not sleeping, climbing on top of his construction bobcat, and answering questions in a nonsensical manner. When asked why he is fixing a mailbox he appears to be distracted and replied "you'll figure it out. " He appears to be gravely disabled. Denies medical complaints. REVIEW OF SYSTEMS: Eye: no change in vision ENT: no sore throat Cardiac: no chest pain or syncope Pulmonary: no cough or SOB Abdomen: no vomiting, diarrhea, abdominal pain Musculoskeletal: no back pain Skin: no rash Neuro: no headache Constitutional: no fever : no urinary symptoms A comprehensive 10 point review of systems is otherwise negative aside from elements mentioned in the history of present illness. PAST MEDICAL HISTORY: Bipolar disorder Social history: Recent alcohol. General Appearance: Alert and conversant, cooperative. Eyes: No scleral icterus. ENT, Mouth: Normal mucous membranes. Respiratory: Normal respiratory effort, breath sounds equal, lungs are clear to auscultation. Cardiovascular: Regular rate and rhythm. Gastrointestinal: Abdomen is soft and non tender. Neurological: Alert and oriented x3. Normally conversant. Face symmetric, normal movement and sensation in all extremities. Skin: Warm and dry, no rashes. Musculoskeletal: No peripheral edema and no joint swelling. Psychiatric: When asked whether he has done any illegal drugs he states "buddy, taurine, aurine, but they are all illegal anyways. "Denies suicidal ideation or hallucinations. Rambling speech. Emergency Department course/MDM: Patient placed on a hold by myself for grave disability based on information obtained from the patient's mother and Dr. Rosales. Signed out to Dr. Sanchez 2199 with urine tox pending then psych evaluation. (Juan Lazaro) Constitutional: Initial Vital Signs Temperature (C) 36.8 C 03/07/17 18:56 Heart Rate 108 H 03/07/17 18:56 Respiratory Rate 16 03/07/17 18:56 Blood Pressure 136/105 H 03/07/17 18:56 O2 Sat (%) 96 03/07/17 18:56 O2 Delivery Mode Room Air Allergies/Adverse Reactions: nitroglycerin [From Nitro-Bid] Allergy (Verified 02/11/17 17:09) Home Medications: Medication Instructions Recorded Eluxadoline [Viberzi] 100 mg PO BID 02/11/17 [place] Carbonate [[place] 600 mg PO BID 02/11/17 Carbonate 600 mg cap (*)] [place] Carbonate [[place] 600 mg PO BID cap 02/20/17 Carbonate Cap 300 mg (*)] Melatonin [Melatonin 3 MG (*)] 3 - 6 mg PO HS PRN #30 tab 02/20/17 OLANZapine DISINTEGR [ZyPREXA 5 mg PO Q4 PRN tab 02/20/17 ZYDIS (*)] OLANZapine DISINTEGR [ZyPREXA 10 mg PO HS tab 02/20/17 ZYDIS (*)] lamoTRIgine [LaMICtal] 25 mg PO HS #30 tab 02/20/17 Medical Decision Making ED Course/Re-evaluation: 7:00 a.m.-I assumed care of this patient at shift change. He has a history of bipolar disorder and presents with acute naif. We are still awaiting a urinalysis. 1330: accepted to [facility]. EMTALA completed. (Kaylee Stenr) 1500: The patient is signed out to me at change of shift. The patient is awaiting placement. At the time of transfer care the patient was doing well with no complaints. (Melly Mays) Other Provider: 2200 care assumed by me from Dr. Lazaro pending mental health evaluation. 0700 patient signed out to Dr. Stern pending call health evaluation. No issues during my care this patient overnight. (Alphonse Sanchez) - Data Points Laboratory Results: Laboratory Results 03/07/17 19:37 03/07/17 19:37 03/08/17 07:05 Urine Opiates Screen NEGATIVE (NEGATIVE) Urine Barbiturates NEGATIVE (NEGATIVE) Ur Phencyclidine Scrn NEGATIVE (NEGATIVE) Ur Amphetamine Screen NEGATIVE (NEGATIVE) U Benzodiazepines Scrn NEGATIVE (NEGATIVE) Urine Cocaine Screen NEGATIVE (NEGATIVE) U Marijuana (THC) Screen NEGATIVE (NEGATIVE) Medications Given: Discontinued Medications Olanzapine (Zyprexa Zydis) 10 mg PO EDNOW ONE Stop: 03/07/17 20:05 Last Admin: 03/07/17 20:05 Dose: 10 mg Departure - Departure Disposition: Other Psych, Not Roberto Clinical Impression: Bipolar disorder with severe naif Condition: Good Referrals: Gaurav Rosales MD [Primary Care Provider] - As per Instructions
[2017-03-07] MEDS ORDERED: OLANZapine DISINTEGR 10 MG TAB ONE (19:28)
[2017-03-07 19:45] LABS: % IMMATURE GRANULYOCYTES 0.2 % (0.0-1.1); ABSOLUTE IMMATURE GRANULOCYTES 0.02 10^3/uL (0.00-0.10); ADD DIFF? NO; ADD MORPH? NO; ADD SCAN? NO; ATYPICAL LYMPHOCYTE FLAG 0 (0-99); FRAGMENT RBC FLAG 0 (0-99); HEMATOCRIT 50.9 % (40.0-51.0); LEFT SHIFT FLG 0 (0-99); LIPEMIA HEMOLYSIS FLAG 80 (0-99); MEAN CELL HEMOGLOBIN 30.4 pg (27.9-34.1); MEAN CELL HEMOGLOBIN CONCENTR. 33.4 g/dL (32.4-36.7); MEAN CELL VOLUME 90.9 fL (81.5-99.8); MEAN PLATELET VOLUME 11.9 fL (8.7-11.7); PLATELET CLUMPS FLAG 0 (0-99); PLATELET COUNT 194 10^3/uL (150-400); RED CELL DISTRIBUTION WIDTH 13.7 % (11.5-15.2)
[2017-03-07] MEDS ORDERED: OLANZapine DISINTEGR 10 MG TAB PO ONE (20:04)
[2017-03-07 20:21] LABS: ANION GAP 16 mEq/L (8-16); CALCIUM 10.5 mg/dL (8.5-10.4); CARBON DIOXIDE 23 mEq/l (22-31); CHLORIDE 104 mEq/L (97-110); CREATININE 1.1 mg/dL (0.7-1.3); ETHANOL SERUM 16 mg/dL (0-10); GLOMERULAR FILTRATION RATE > 60; GLUCOSE 90 mg/dL (70-100); LITHIUM 0.2 mEq/L (0.6-1.2); POTASSIUM 3.9 mEq/L (3.5-5.2); SODIUM 143 mEq/L (134-144)
[2017-03-08 14:04] VITALS: RESP 16
[2017-03-08 14:06] VITALS: BP 156/81; PULSE 89; TEMP 98.6; O2SAT 96
== END 2017-03-08 15:50 ==
DX: F31.9 Bipolar disorder, unspecified (principal); F17.200 Nicotine dependence, unspecified, uncomplicated
CPT/HCPCS: 80305; G0480